=== PATIENT | female | born 1950 | race African-American/Black ===

== ENCOUNTER 2018-07-31 08:32 | Inpatient (IN) ==
[2018-07-31 09:45] LABS: Baso % (Auto) 0.2 % (0.0-2.0); Hematocrit 33.3 % (35.0-46.0); Hemoglobin 10.5 gm/dL (11.6-15.3); Lymph # (Auto) 0.7 th/mm3 (1.0-4.8); Mean Corpuscular HGB Conc 31.5 % (32.0-36.0); Mean Corpuscular Hemoglobin 27.5 pg (27.0-34.0); Mean Corpuscular Volume 87.1 fL (80.0-100.0); Mean Platelet Volume 7.2 fL (7.0-11.0); Mono # (Auto) 0.4 th/mm3 (0.0-0.9); Mono % (Auto) 3.6 % (0.0-8.0); Neut # (Auto) 10.3 th/mm3 (1.8-7.7); Neut % (Auto) 90.2 % (16.0-70.0); Platelet Count 429 th/mm3 (150-450); Red Blood Count 3.83 mil/mm3 (4.00-5.30); Red Cell Distribution Width 17.6 % (11.6-17.2); White Blood Count 11.4 th/mm3 (4.0-11.0)
[2018-07-31 09:48] LABS: Activated Partial Thrombo Time 25.2 sec (24.3-30.1); INR 1.1 Ratio; Prothrombin Time 11.6 sec (9.8-11.6)
[2018-07-31 09:58] LABS: Albumin 2.7 g/dL (3.4-5.0); Anion Gap 15 meq/L (5-15); Aspartate Aminotransferase 20 U/L (15-37); Blood Urea Nitrogen 49 mg/dL (7-18); Calcium 10.4 mg/dL (8.5-10.1); Carbon Dioxide 15.4 meq/L (21.0-32.0); Chloride 113 meq/L (98-107); Glomerular Filtration Rate 16 mL/min (>89); Glucose,Random 118 mg/dL (74-106); Lipase 58 U/L (73-393); Potassium 5.2 meq/L (3.5-5.1); Sodium 143 meq/L (136-145)
[2018-07-31 09:59] LABS: Alanine Aminotransferase 11 U/L (10-53)
[2018-07-31 10:01] LABS: Alkaline Phosphatase 77 U/L (45-117); Total Protein 7.5 g/dL (6.4-8.2)
[2018-07-31] MEDS ORDERED: dilTIAZem Inj 125 MG in Sodium Chlor 0.9% Inj 100 ML IV.CONT PRN (10:35)
[2018-07-31] MEDS ORDERED: Piperacil/Tazo 2.25 GM Premix 50 ML IV.SIG ONE (10:41)
[2018-07-31] MEDS ORDERED: Sod Chloride 0.9% Inj 1,000 ML IV.SIG SCH (10:45)
[2018-07-31 10:50] VITALS: TEMP 97.6
[2018-07-31] MEDS ORDERED: Sodium Chlor 0.9% Inj 500 ML IV.SIG SCH (11:00)
[2018-07-31] MEDS ORDERED: Vancomycin Inj 1 GM/200 ML PIGGYBACK IV.SIG SCH (11:00)
--- NOTE | 2018-07-31 11:06 | XR ---
EXAM DATE: 07/31/2018 10:41 AM EDT AGE/SEX: 68 years / Female INDICATIONS: Difficulty breathing. CLINICAL DATA: This is the patient's initial encounter. Patient reports that signs and symptoms have been present for 1 day and indicates a pain score of Nonresponsive. MEDICAL/SURGICAL HISTORY: Non-responsive. Non-responsive. COMPARISON: No prior exams available for comparison. FINDINGS: A single AP view of the chest demonstrates the lungs to be symmetrically aerated without evidence of mass, infiltrate or effusion. The cardiomediastinal contours are unremarkable. Osseous structures a re intact. CONCLUSION: No acute cardiopulmonary disease Electronically signed by: Sandeep Powell MD 07/31/2018 11:04 AM EDT
[2018-07-31] MEDS ORDERED: HYDROmorphone PF Inj 2 MG/ML Vial IV.PUSH ONE (11:33)
[2018-07-31] MEDS ORDERED: Vancomycin Inj 1,000 MG in Sodium Chlor 0.9% Inj 250 ML IV.SIG SCH (12:00)
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
--- NOTE | 2018-07-31 12:36 | ECG ---
Date Performed: 07/31/2018 Time Performed: 08:45:05 PTAGE: 68 years EKG: ATRIAL FIBRILLATION WITH RAPID VENTRICULAR RESPONSE LOW QRS VOLTAGE IN PRECORDIAL LEADS DIF FUSE NONSPECIFIC T WAVE ABNORMALITY ABNORMAL ECG NO PREVIOUS TRACING DOCTOR: Steve Estevez Interpretating Date/Time 07/31/2018 12:33:49
[2018-07-31 12:43] LABS: ABG Base Excess -10.7 mmol/L (-2-2); ABG PCO2 30 mmHg (38-42); ABG PO2 76 mmHg (61-120)
[2018-07-31] MEDS ORDERED: Etomidate Inj 40 MG/20 ML Vial IV.PUSH ONE (12:57)
[2018-07-31] MEDS ORDERED: Succinylcholine Inj 200 MG/10 ML Vial ONE (12:58)
[2018-07-31] MEDS ORDERED: Midazolam 50 MG/50 ML Inj 50 MG/50 ML BAG IV.CONT PRN (13:28)
[2018-07-31] MEDS ORDERED: Etomidate Inj 20 MG/10 ML Ampul IV.PUSH ONE (13:28)
[2018-07-31] MEDS ORDERED: fentaNYL 10 mcg/mL Premix Drip 2,500 MCG/250 ML BAG IV.SIG PRN (13:28)
[2018-07-31] MEDS ORDERED: Bisacodyl 10 MG Supp RECTAL PRN (13:30)
[2018-07-31] MEDS ORDERED: Amiodarone Inj 150 MG in Dextrose 5% in Water Inj 97 ML IV.SIG ONE ×2 (13:39)
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
--- NOTE | 2018-07-31 13:55 | XR ---
EXAM DATE: 07/31/2018 1:27 PM EDT AGE/SEX: 68 years / Female INDICATIONS: Respiratory failure, post intubation CLINICAL DATA: This is the patient's subsequent encounter. Patient reports that signs and symptoms h ave been present for 1 day and indicates a pain score of Nonresponsive. MEDICAL/SURGICAL HISTORY: . A fib Non-responsive. COMPARISON: [facility], CHEST 1V SINGLE AP, 07/31/2018. . FINDINGS: ETT is approximately 9 mm above the jak. Lungs are hypoaerated with slight airspace disease in the right lower lung zone medially. Cardiomediastinal contours are within normal limits given portable t echnique. Remainder of the exam is unchanged. CONCLUSION: 1. ETT approximately 9 mm above the jak. 2. Minimal medial right lower lung zone airspace disease, presumably atelectasis. Electronically signed by: Jose Maria Kumar MD 07/31/2018 1:54 PM EDT
[2018-07-31 13:59] VITALS: BP 91/54; PULSE 148
[2018-07-31 14:09] VITALS: RESP 16
[2018-07-31] MEDS ORDERED: fentaNYL 10 mcg/mL Premix Drip 2,500 MCG/250 ML BAG ONE (14:19)
[2018-07-31] MEDS ORDERED: Midazolam 50 MG/50 ML Inj 50 MG/50 ML BAG IV.CONT ONE (14:19)
[2018-07-31] MEDS ORDERED: Albumin Human 25% Inj 100 ML IV.SIG ONE ×2 (14:33→14:34)
[2018-07-31] MEDS ORDERED: Sod Chloride 0.9% Inj 1,000 ML IV.SIG ONE (14:34)
[2018-07-31] MEDS ORDERED: Heparin - SQ 10,000 UNITS/ML Vial SQ SCH (15:00)
--- NOTE | 2018-07-31 15:32 | CT ---
EXAM DATE: 07/31/2018 3:03 PM EDT AGE/SEX: 68 years / Female INDICATIONS: Respiratory distress. CLINICAL DATA: This is the patient's initial encounter. Patient reports that signs and symptoms have been present for 1 day and indicates a pain score of Nonresponsive. MEDICAL/SURGICAL HISTORY: Cirrhosis. Cardiovascular disease. Hypertension. A-fib None. RADIATION DOSE: 19.81 CTDI (mGy) ; Combined studies COMPARISON: [facility], CHEST 1V SINGLE AP, 07/31/2018. . TECHNIQUE: Multiple contiguous axial images were obtained through the chest without contrast. Image s were obtained in suspended respiration using multiple row detector helical technique. Using automa trina exposure control and adjustment of the mA and/or kV according to patient size, radiation dose was kept as low as reasonably achievable to obtain optimal diagnostic quality images. DICOM format imag e data is available electronically for review and comparison. FINDINGS: Lungs: Minimal bibasilar consolidation. There are some scattered groundglass densities in the superi or segment right lower lobe and in the left upper lobe. Nodule right lower lobe measures 7 mm. Mediastinum: There is good visualization of the great vessels of the middle mediastinum. No evidenc e of mediastinal or hilar adenopathy/mass. Cardiomegaly with coronary artery calcifications. Pleurae: Small pleural effusions slightly greater on the right. Axillae: Unremarkable. Bony Structures: Unremarkable. Miscellaneous: The examination was extended to include the upper abdomen, and both adrenal glands ar e normal in size and configuration. Endotracheal tube with tip right at the jak. CONCLUSION: 1. Small pleural effusions slightly greater on the right. 2. Bibasilar densities and scattered groundglass densities could be atelectasis and some minimal pul monary edema. 3. Nodule right lower lobe measures 7 mm. 4. Cardiomegaly coronary artery calcifications. Electronically signed by: Sandeep Powell MD 07/31/2018 3:31 PM EDT
--- NOTE | 2018-07-31 15:38 | CT ---
EXAM DATE: 07/31/2018 10:33 AM EDT AGE/SEX: 68 years / Female INDICATIONS: Abdomen pain with ascites. CLINICAL DATA: This is the patient's initial encounter. Patient reports that signs and symptoms have been present for 1 day and indicates a pain score of Nonresponsive. MEDICAL/SURGICAL HISTORY: Cirrhosis. Cardiovascular disease. Hypertension. seizures, A-fib None. RADIATION DOSE: 19.81 CTDI (mGy) ; Combined studies COMPARISON: No prior exams available for comparison. TECHNIQUE: Multiple contiguous axial images were obtained through the abdomen. Images were obtained using multiple row detector helical technique. Using automated exposure control and adjustment of the mA and/or kV according to patient size, radiation dose was kept as low as reasonably achievable to o btain optimal diagnostic quality images. DICOM format image data is available electronically for rev iew and comparison. FINDINGS: LOWER LUNGS: Mild bibasilar airspace consolidation. LIVER: Cirrhotic appearing liver with uniform density. Probable small gallstone in the gallbladder. SPLEEN: Homogeneous density without enlargement. PANCREAS: Grossly unremarkable. KIDNEYS: Kidneys are symmetrical in size without evidence for radiopaque renal calculi or hydronephr osis. No significant contour deforming renal abnormality. ADRENAL GLANDS: Unremarkable. AORTA: Aria-aneurysmal. BOWEL/MESENTERY: There is a moderate to large amount of ascites. Bowel is grossly unremarkable witho ut evidence for obstruction. No pneumatosis or free air. There is prominence of the mesentery in the left upper quadrant which may reflect mesenteric edema although an infiltrative process cannot be ent irely excluded. ABDOMINAL WALL: Intact. BLADDER: Nearly completely decompressed secondary to Arteaga catheter. REPRODUCTIVE: Multiple large coarsely calcified uterine masses consistent with calcified leiomyomas. BONY STRUCTURES: There is a ill-defined sclerosis of the L2 vertebral body as well as a more focal s clerotic lesion in the posterior inferior endplate of L1. CONCLUSION: 1. Cirrhotic appearing liver with moderate to large amount of ascites. 2. Prominence of the left upper quadrant mesentery which may reflect mesenteric edema although an in filtrative process such as carcinomatosis cannot be entirely excluded. 3. Ill-defined sclerotic lesion involving L2 vertebral body as well as focal sclerotic lesion involv ing the inferior endplate of L1. This may be further evaluated with PET/CT exam on an outpatient basi s which can help further evaluate the mesenteric abnormality as well. 4. Extensive findings include calcified uterine leiomyomas and cholelithiasis. Electronically signed by: Jose Maria Kumar MD 07/31/2018 3:37 PM EDT
[2018-07-31 15:51] VITALS: O2SAT 91
[2018-07-31] MEDS ORDERED: Oral Hygiene Kit OROPHARYNG SCH (16:00)
[2018-07-31 16:55] LABS: Total Protein,Peritoneal Fluid 4.4 gm/dL
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
[2018-07-31 17:17] LABS: ABG Base Excess -16.9 mmol/L (-2-2); ABG PCO2 51 mmHg (38-42); ABG PO2 105 mmHG (61-120)
[2018-07-31] MEDS ORDERED: Phenylephrine Inj 80 MG in Sodium Chlor 0.9% Inj 492 ML IV.CONT PRN (17:29)
[2018-07-31] MEDS ORDERED: Calcium Chloride Inj 1 GM/10 ML Syringe ONE (17:56)
[2018-07-31] MEDS ORDERED: Sodium Bicarbonate 8.4% Inj 50 MEQ/50 ML Syringe ONE (17:58)
[2018-07-31 18:00] LABS: ABG PCO2 51 mmHg (38-42); ABG PO2 78 mmHG (61-120)
[2018-07-31] MEDS ORDERED: Sodium Bicarbonate 8.4% Inj 150 MEQ in Dextrose 5% in Water Inj 850 ML IV.CONT SCH ×2 (18:00)
[2018-07-31 18:07] LABS: RBC,Peritoneal Fluid 7083 /mm3 (0-0)
[2018-07-31 18:08] LABS: Mesothelial,Peritoneal Fluid 36 %; Neutrophils,Peritoneal Fluid 17 %
[2018-07-31 18:28] LABS: % Iron Saturation 28.4 % (20-50)
[2018-07-31 18:31] LABS: Alpha Fetoprotein Tumor Marker 1.4 ng/mL (0.5-8.0); Carcinoembryonic Antigen 0.6 ng/mL (0.2-5.0)
[2018-07-31] MEDS ORDERED: Sodium Bicarbonate 8.4% Inj 50 MEQ/50 ML Syringe IV.CONT ONE (18:33)
[2018-07-31] MEDS ORDERED: DOPamine 800 MG/500 ML Premix 800 MG/500 ML PLAST..BAG IV.CONT ONE (18:33)
[2018-07-31] MEDS ORDERED: Calcium Chloride Inj 1 GM/10 ML Syringe IV.CONT ONE (18:33)
[2018-07-31] MEDS ORDERED: Atropine Inj 1 MG/10 ML Syringe IV.PUSH ONE (18:33)
[2018-07-31 18:37] LABS: Baso % (Auto) 0.2 % (0.0-2.0); Hematocrit 21.5 % (35.0-46.0); Lymph # (Auto) 1.7 th/mm3 (1.0-4.8); Mean Corpuscular HGB Conc 31.7 % (32.0-36.0); Mean Corpuscular Volume 88.3 fL (80.0-100.0); Mean Platelet Volume 6.9 fL (7.0-11.0); Mono # (Auto) 0.1 th/mm3 (0.0-0.9); Mono % (Auto) 1.1 % (0.0-8.0); Neut # (Auto) 6.4 th/mm3 (1.8-7.7); Neut % (Auto) 77.7 % (16.0-70.0); Platelet Count 168 th/mm3 (150-450); Red Blood Count 2.43 mil/mm3 (4.00-5.30); Red Cell Distribution Width 17.2 % (11.6-17.2); White Blood Count 8.3 th/mm3 (4.0-11.0)
[2018-07-31 18:39] LABS: Hemoglobin 6.8 gm/dL (11.6-15.3)
--- NOTE | 2018-07-31 18:51 | P.PCN ---
Date of procedure: 07/31/18 Pre-op diagnosis: hypotension Post-op diagnosis: same Procedure: Left femoral arterial line The patient's left femoral area was cleaned with Chloraprep and allowed to fully dry. The area was prepped and draped using sterile technique. The vessel was visualized under ultrasound guidance with sterile probe cover and a left femoral arterial line was placed via Seldinger technique. The line was sutured in place and it was dressed with a Biopatch and sterile Tegaderm. The patient tolerated the procedure well with no immediate complications. Anesthesia: none Surgeon: Sharmin Carrasco Estimated blood loss (mL): 10 Condition: stable Disposition: ICU
[2018-07-31 18:53] LABS: Anion Gap 14 meq/L (5-15); Blood Urea Nitrogen 39 mg/dL (7-18); Carbon Dioxide 19.2 meq/L (21.0-32.0); Chloride 127 meq/L (98-107); Glomerular Filtration Rate 20 mL/min (>89); Glucose,Random 166 mg/dL (74-106); Potassium 5.4 meq/L (3.5-5.1)
[2018-07-31 18:54] LABS: Alanine Aminotransferase 419 U/L (10-53); Albumin 1.8 g/dL (3.4-5.0); Alkaline Phosphatase 51 U/L (45-117); Aspartate Aminotransferase 1238 U/L (15-37); Total Protein 4.4 g/dL (6.4-8.2)
--- NOTE | 2018-07-31 18:55 | P.PNCC ---
Critical Care Event Note Code activated: Yes Narrative: This case had a high probability of a clinically significant, sudden, or life threatening deterioration of this patient's condition which required my full and direct attention, intervention and personal management. This involved an additional 80 minutes of critical care time which is separate from my earlier documentation and does not include procedures. I was called to the bedside by the RN when the patient was noted to become profoundly hypotensive. I had ordered a phenylephrine drip within 15 minutes prior to this event, but it had not yet been started as it was en route from the pharmacy. When I arrived at the bedside, the patient was receiving chest compressions and bag mask ventilations; she had also been started on a levophed drip. I was notified that the patient had dropped her BP to 40s/20s, became bradycardic to the 30s, and a pulse was unable to be palpated. Her ABG drawn immediately prior to this first arrest showed profound acidosis and hypercarbia , so her rate and tidal volume were increased on the ventilator. The patient initially received 2 amps of sodium bicarbonate and 1 mg of epinephrine with ROSC. A 12 lead EKG at that time showed atrial fibrillation in the 90s-100s, no STEMI. A repeat ABG was drawn, which showed adequate oxygenation and improvement in acidosis; repeat stat labs were sent but results were not available until well over 45 minutes later. Over the course of the next 80+ minutes, the patient had several more episodes of hypotension, followed by bradycardia and cardiac arrest. In total, she received multiple doses of epinephrine, multiple amps of bicarb followed by a bicarb drip, atropine, multiple doses of calcium chloride, insulin, several liters of normal saline, continued albumin resuscitation, and transvenous pacing was attempted but all were unsuccessful. I performed a bedside ultrasound which showed no pericardial effusion or tamponade. Her abdomen was soft and much less distended than earlier, so I do not believe this was recurrent abdominal compartment syndrome. She was treated or clinically ruled out for common reversible causes of cardiac arrest (Hs/ Ts). We attempted to contact the nursing facility where she had been evacuated to in order to obtain contact info for next of kin but were told that they did not have any; we have not heard back from the original OR where the patient came from. The patient was pronounced at 18:34. Preliminary cause of is cardiac arrest secondary to complications from liver cirrhosis. Contributing factors included acute hypoxic respiratory failure , intra-abdominal hypertension secondary to ascites, acute kidney injury, and atrial fibrillation with rapid ventricular response. Critical care time: 75 - 104 mins
[2018-07-31 19:00] LABS: Sodium 160 meq/L (136-145)
[2018-07-31 19:01] LABS: Calcium Greater Than 30.0 mg/dL (8.5-10.1)
--- NOTE | 2018-07-31 19:09 | P.DN ---
Pronouncement Note - Date and Time of Date of : 07/31/18 Time of : 18:34 - PCOD Preliminary cause of : Cardiac arrest (Secondary to complications from liver cirrhosis) Preliminary cause of : Contributing factors included acute hypoxic respiratory failure, intra- abdominal hypertension secondary to ascites, acute kidney injury, and atrial fibrillation with rapid ventricular response. - Contributing Factors (1) Atrial fibrillation with rapid ventricular response (2) Ascites (3) Encephalopathy (4) Respiratory failure (5) Lactic acidosis (6) Acute kidney injury (7) Cirrhosis - Summary Additional details: Please see critical care event note
--- NOTE | 2018-07-31 19:12 | P.DN ---
- Provider Primary care physician: UNKNOWN Admitting clinician: Sharmin Carrasco Attending physician on admission: Sharmin Carrasco Consults: 07/31/18 15:01 Consult to Gastroenterology Routine Consulting Provider: Brittany Hinds Reason for Consultation: Tense ascites s/p large volume paracentesis, history of cirrhosis Notified:: Office Spoke with:: Anusha Date Notified:: 07/31/18 Time Notified:: 15:04 Ordering Provider: COREY Pronouncing clinician: Sharmin Carrasco - Admitting Diagnosis (1) Acute kidney injury (2) Ascites (3) Atrial fibrillation with rapid ventricular response (4) Cardiac arrest (5) Encephalopathy (6) Hypothermia (7) Lactic acidosis (8) Respiratory failure (9) Cirrhosis - Diagnosis at Time of (1) Acute kidney injury Diagnosis: Secondary (2) Ascites Diagnosis: Secondary (3) Atrial fibrillation with rapid ventricular response Diagnosis: Secondary (4) Cardiac arrest Diagnosis: Principal (5) Encephalopathy Diagnosis: Secondary (6) Hypothermia Diagnosis: Secondary (7) Lactic acidosis Diagnosis: Secondary (8) Respiratory failure Diagnosis: Secondary (9) Cirrhosis Diagnosis: Principal - Date and Time Date of admission: 07/31/18 12:57 Date of : 07/31/18 Time of : 18:34 - Summary Procedures: Right femoral central line Intubation Paracentesis Left femoral arterial line Brief History: 68yF presenting with abdominal pain. The patient is a poor historian and told the ED physician that she is here after being evacuated from a SNF on the [facility] before [place]. She says that she has a history of "fluid in my belly" and has required at least 2 paracenteses in the past (most recently Jul 21). The patient does not know which hospital that was performed at. She was found to be in rapid A fib on arrival with borderline BP, became short of breath and required face mask O2 for relative hypoxia, and became confused just before my arrival in the ED. She required intubation during my initial evaluation, has no friends or family members present, no previous records in our EMR, and I am unable to elicit any further details of HPI, ROS, PMH/PSH/ allergies/ meds/ social or family history. Result Diagrams: 07/31/18 18:21 07/31/18 17:50 Significant Findings: Abnormal Lab Results 07/31/18 07/31/18 07/31/18 09:15 09:15 09:15 WBC 11.4 H RBC 3.83 L Hgb 10.5 L Hct 33.3 L MCV 87.1 MCH 27.5 MCHC 31.5 L RDW 17.6 H Plt Count 429 MPV 7.2 Prelim Diff (Auto) Neut % (Auto) 90.2 H Lymph % (Auto) 6.0 L [place] % (Auto) 3.6 Eos % (Auto) 0.0 Baso % (Auto) 0.2 Neut # (Auto) 10.3 H Lymph # (Auto) 0.7 L [place] # (Auto) 0.4 Eos # (Auto) 0.0 Baso # (Auto) 0.0 WBC Differential . Differential Comment Auto diff final ESR PT 11.6 INR 1.1 APTT 25.2 Puncture Site Patient Temperature O2 Saturation ABG pH ABG pCO2 ABG pO2 ABG HCO3 ABG O2 Content ABG Base Excess ABG Methemoglobin Lopez Test Hemoglobin Carboxyhemoglobin O2 Delivery Device Liter Flow Vent Setting Inspired O2 Critical Value Sodium 143 Potassium 5.2 H Chloride 113 H Carbon Dioxide 15.4 L Anion Gap 15 BUN 49 H Creatinine 2.99 H Estimated GFR 16 L POC Glucose Random Glucose 118 H Lactic Acid Calcium 10.4 H Prot Corrected Calcium Iron TIBC % Saturation Ferritin Total Bilirubin 0.5 Direct Bilirubin Indirect Bilirubin AST 20 ALT 11 Alkaline Phosphatase 77 Total Protein 7.5 Albumin 2.7 L Lipase 58 L Tumor Marker AFP Carcinoembryonic Ag Peritoneal RBC Periton Nuc Cells Periton Neutrophils Periton Lymphocytes Peritoneal Monocytes Periton Mesothelial Periton Histiocytes Peritoneal Tot Protein Peritoneal Albumin Peritoneal LDH Peritoneal Glucose Peritoneal Amylase 07/31/18 07/31/18 07/31/18 12:00 12:33 15:00 WBC RBC Hgb Hct MCV MCH MCHC RDW Plt Count MPV Prelim Diff (Auto) Neut % (Auto) Lymph % (Auto) [place] % (Auto) Eos % (Auto) Baso % (Auto) Neut # (Auto) Lymph # (Auto) [place] # (Auto) Eos # (Auto) Baso # (Auto) WBC Differential Differential Comment ESR PT INR APTT Puncture Site Right radial Patient Temperature 98.6 O2 Saturation 90 ABG pH 7.30 L ABG pCO2 30 L ABG pO2 76 ABG HCO3 14 L* ABG O2 Content 16.9 ABG Base Excess -10.7 L ABG Methemoglobin 0.6 Lopez Test Present Hemoglobin 13.3 Carboxyhemoglobin 0.6 O2 Delivery Device Nasal cannula Liter Flow 4.00 Vent Setting Inspired O2 Critical Value Yes Sodium Potassium Chloride Carbon Dioxide Anion Gap BUN Creatinine Estimated GFR POC Glucose Random Glucose Lactic Acid 2.5 H Calcium Prot Corrected Calcium Iron TIBC % Saturation Ferritin Total Bilirubin Direct Bilirubin Indirect Bilirubin AST ALT Alkaline Phosphatase Total Protein Albumin Lipase Tumor Marker AFP Carcinoembryonic Ag Peritoneal RBC Periton Nuc Cells Periton Neutrophils Periton Lymphocytes Peritoneal Monocytes Periton Mesothelial Periton Histiocytes Peritoneal Tot Protein 4.4 Peritoneal Albumin 2.1 Peritoneal LDH 643 Peritoneal Glucose 40 Peritoneal Amylase 206 07/31/18 07/31/18 07/31/18 15:00 17:08 17:50 WBC RBC Hgb Hct MCV MCH MCHC RDW Plt Count MPV Prelim Diff (Auto) Neut % (Auto) Lymph % (Auto) [place] % (Auto) Eos % (Auto) Baso % (Auto) Neut # (Auto) Lymph # (Auto) [place] # (Auto) Eos # (Auto) Baso # (Auto) WBC Differential Differential Comment ESR PT INR APTT Puncture Site Art line Patient Temperature 98.6 O2 Saturation 91 ABG pH 7.01 L* ABG pCO2 51 H* ABG pO2 105 ABG HCO3 12 L* ABG O2 Content 12.1 ABG Base Excess -16.9 L ABG Methemoglobin 1.5 Lopez Test Hemoglobin 9.3 L Carboxyhemoglobin 0.0 O2 Delivery Device Ventilator Liter Flow Vent Setting Prvc/ac Inspired O2 75 Critical Value Yes Sodium Potassium Chloride Carbon Dioxide Anion Gap BUN Creatinine Estimated GFR POC Glucose Random Glucose Lactic Acid Calcium Prot Corrected Calcium Iron 29 L TIBC 102 L % Saturation 28.4 Ferritin 1947 H Total Bilirubin Direct Bilirubin Indirect Bilirubin AST ALT Alkaline Phosphatase Total Protein Albumin Lipase Tumor Marker AFP 1.4 Carcinoembryonic Ag 0.6 Peritoneal RBC 7083 H Periton Nuc Cells 506 H Periton Neutrophils 17 Periton Lymphocytes 6 Peritoneal Monocytes 35 Periton Mesothelial 36 Periton Histiocytes 6 Peritoneal Tot Protein Peritoneal Albumin Peritoneal LDH Peritoneal Glucose Peritoneal Amylase 07/31/18 07/31/18 07/31/18 17:50 17:50 17:50 WBC RBC Hgb Hct MCV MCH MCHC RDW Plt Count MPV Prelim Diff (Auto) Neut % (Auto) Lymph % (Auto) [place] % (Auto) Eos % (Auto) Baso % (Auto) Neut # (Auto) Lymph # (Auto) [place] # (Auto) Eos # (Auto) Baso # (Auto) WBC Differential Differential Comment ESR PT INR APTT Puncture Site Patient Temperature O2 Saturation ABG pH ABG pCO2 ABG pO2 ABG HCO3 ABG O2 Content ABG Base Excess ABG Methemoglobin Lopez Test Hemoglobin Carboxyhemoglobin O2 Delivery Device Liter Flow Vent Setting Inspired O2 Critical Value Sodium 160 H* D Potassium 5.4 H Chloride 127 H D Carbon Dioxide 19.2 L Anion Gap 14 BUN 39 H Creatinine 2.79 H Estimated GFR 20 L POC Glucose 146 H Random Glucose 166 H Lactic Acid Calcium Greater than 30.0 H* D Prot Corrected Calcium Iron TIBC % Saturation Ferritin Total Bilirubin Cancelled 0.5 Direct Bilirubin Cancelled 0.2 Indirect Bilirubin Cancelled AST Cancelled 1238 H ALT Cancelled 419 H Alkaline Phosphatase Cancelled 51 Total Protein Cancelled 4.4 L D Albumin Cancelled 1.8 L D Lipase Tumor Marker AFP Carcinoembryonic Ag Peritoneal RBC Periton Nuc Cells Periton Neutrophils Periton Lymphocytes Peritoneal Monocytes Periton Mesothelial Periton Histiocytes Peritoneal Tot Protein Peritoneal Albumin Peritoneal LDH Peritoneal Glucose Peritoneal Amylase 07/31/18 07/31/18 07/31/18 17:50 17:52 18:21 WBC RBC Hgb Hct MCV MCH MCHC RDW Plt Count MPV Prelim Diff (Auto) Neut % (Auto) Lymph % (Auto) [place] % (Auto) Eos % (Auto) Baso % (Auto) Neut # (Auto) Lymph # (Auto) [place] # (Auto) Eos # (Auto) Baso # (Auto) WBC Differential Differential Comment ESR 31 H PT INR APTT Puncture Site Art line Patient Temperature 98.6 O2 Saturation 88 L* ABG pH 7.14 L* ABG pCO2 51 H* ABG pO2 78 ABG HCO3 17 L ABG O2 Content 8.8 L ABG Base Excess -11.0 L ABG Methemoglobin 1.5 Lopez Test Hemoglobin 7.0 L* Carboxyhemoglobin 0.5 O2 Delivery Device Ventilator Liter Flow Vent Setting Prvcac Inspired O2 100 Critical Value Yes Sodium Potassium Chloride Carbon Dioxide Anion Gap BUN Creatinine Estimated GFR POC Glucose Random Glucose Lactic Acid 9.4 H* Calcium Prot Corrected Calcium Iron TIBC % Saturation Ferritin Total Bilirubin Direct Bilirubin Indirect Bilirubin AST ALT Alkaline Phosphatase Total Protein Albumin Lipase Tumor Marker AFP Carcinoembryonic Ag Peritoneal RBC Periton Nuc Cells Periton Neutrophils Periton Lymphocytes Peritoneal Monocytes Periton Mesothelial Periton Histiocytes Peritoneal Tot Protein Peritoneal Albumin Peritoneal LDH Peritoneal Glucose Peritoneal Amylase 07/31/18 18:21 WBC 8.3 RBC 2.43 L Hgb 6.8 L* D Hct 21.5 L MCV 88.3 MCH 28.0 MCHC 31.7 L RDW 17.2 Plt Count 168 D MPV 6.9 L Prelim Diff (Auto) Slide review pending Neut % (Auto) 77.7 H Lymph % (Auto) 21.0 [place] % (Auto) 1.1 Eos % (Auto) 0.0 Baso % (Auto) 0.2 Neut # (Auto) 6.4 Lymph # (Auto) 1.7 [place] # (Auto) 0.1 Eos # (Auto) 0.0 Baso # (Auto) 0.0 WBC Differential Differential Comment . ESR PT INR APTT Puncture Site Patient Temperature O2 Saturation ABG pH ABG pCO2 ABG pO2 ABG HCO3 ABG O2 Content ABG Base Excess ABG Methemoglobin Lopez Test Hemoglobin Carboxyhemoglobin O2 Delivery Device Liter Flow Vent Setting Inspired O2 Critical Value Sodium Potassium Chloride Carbon Dioxide Anion Gap BUN Creatinine Estimated GFR POC Glucose Random Glucose Lactic Acid Calcium Prot Corrected Calcium Iron TIBC % Saturation Ferritin Total Bilirubin Direct Bilirubin Indirect Bilirubin AST ALT Alkaline Phosphatase Total Protein Albumin Lipase Tumor Marker AFP Carcinoembryonic Ag Peritoneal RBC Periton Nuc Cells Periton Neutrophils Periton Lymphocytes Peritoneal Monocytes Periton Mesothelial Periton Histiocytes Peritoneal Tot Protein Peritoneal Albumin Peritoneal LDH Peritoneal Glucose Peritoneal Amylase Hospital Course: Please see H&P and critical care event note.
[2018-07-31 19:17] LABS: Lymphocytes 9 % (9-44); Metamyelocytes 2 % (0-1); Monocytes 2 % (0-8); Myelocytes 1 % (0-0); Platelet Estimate Normal (Normal); Platelet Morphology Normal (Normal); Tallied Nucleated RBC 7 (0-0)
[2018-07-31] MEDS ORDERED: Chlorhexidine 0.12% Oral Kit 15 ML UDC OROPHARYNG SCH (20:00)
[2018-07-31] MEDS ORDERED: Senna/Docusate Sodium 8.6/50 MG Tablet PO SCH (21:00)
[2018-07-31] MEDS ORDERED: Famotidine 20 MG Tablet PO SCH (21:00)
[2018-07-31] MEDS ORDERED: Famotidine PF Inj 20 MG/2 ML Vial IV.PUSH SCH (21:00)
[2018-08-01] MEDS ORDERED: Chlorhexidine Gluconate 2% 1 Pack (2 Cloths) TOPICAL PRN (04:00)
[2018-08-01] MEDS ORDERED: Chlorhexidine Gluconate 2% 1 Pack (2 Cloths) TOPICAL SCH (04:00)
--- NOTE | 2018-08-01 20:37 | ECG ---
Date Performed: 07/31/2018 Time Performed: 17:42:20 PTAGE: 68 years EKG: Atrial fibrillation with rapid ventricular response. Possible anterior infarct - age undete rmined Inferior/lateral T wave changes Generalized low QRS voltages Abnormal ECG NO PREVIOUS TRACING DOCTOR: Javid Myers Interpretating Date/Time 08/01/2018 20:35:30
== END 2018-07-31 18:34 | disposition expired ==
LOC: NEPE 08:32 → NEDA 12:57 → HIMC 15:15
PROVIDERS: ADMIT Surgery Surgical Critical Care; ATTEND Surgery Surgical Critical Care